=== PATIENT | female | born 1990 | race Caucasian/White ===

== ENCOUNTER → 2023-02-15 11:59 | Outpatient (CLI) | payer SELFPAY | PROVIDERS: PCP Physician Assistant; Visit Provider Physician Assistant Medical | DX: J02.9 Acute pharyngitis, unspecified (principal); R05.9 Cough, unspecified | CPT/HCPCS: 87070 ==

== ENCOUNTER → 2024-06-21 09:21 | Outpatient (CLI) | payer SELFPAY ==
[2024-06-21 18:45] LABS: Add Manual Diff / Slide Review NO; Basophils Absolute Auto 0 /uL (0-100); Basophils Percent Auto 0.3 % (0-2); Eosinophils Absolute Auto 0 /uL (0-450); Eosinophils Percent Auto 0.2 % (2-4); Hematocrit 37.9 % (36-46); Hemoglobin 13.1 g/dL (12.0-16.0); Lymphocytes Absolute Auto 1200 /uL (1100-4500); Lymphocytes Percent Auto 14.7 % (25-40); Mean Corpuscular HGB Conc 34.5 % (30-36); Mean Corpuscular Hemoglobin 31.8 PG (26-34); Mean Corpuscular Volume 92.1 fL (80-100); Monocytes Absolute Auto 600 /uL (0-900); Monocytes Percent Auto 7.5 % (3-14); Neutrophils Absolute Auto 6200 /uL (1500-7000); Neutrophils Percent Auto 77.3 % (50-75); Platelet Count 247 X10^3/uL (150-400); Red Blood Cell Count 4.12 X10^6/uL (4.0-5.2); Red Cell Distribution Width 12.7 % (11.6-14.8); White Blood Cell Count 8.1 X10^3/uL (4.5-11.0)
[2024-06-21 19:27] LABS: Ferritin 15 ng/mL (6-137)
[2024-06-21 19:36] LABS: TSH w/ Reflex to FT4 1.08 uIU/mL (0.47-4.68)
[2024-06-21 19:54] LABS: Vitamin B12 286 pg/mL (239-931)
== END ==
PROVIDERS: PCP Physician Assistant; Visit Provider Nurse Practitioner Adult Health
DX: N91.4 Secondary oligomenorrhea (principal)
CPT/HCPCS: 82397; 82607; 82728; 84443; 85025